=== PATIENT | male | born 1960 | race Caucasian/White ===

== ENCOUNTER 2019-11-26 11:00 | Outpatient (RCR) | payer BC, SELFPAY ==
[2019-11-05 09:26] VITALS: BMI 31.0
== END 2020-01-25 09:36 | disposition home or self-care (01) ==
LOC: ANHDMC 11:00
PROVIDERS: PCP Family Medicine; Visit Provider Family Medicine
DX: E11.65 Type 2 diabetes mellitus with hyperglycemia (principal); Z71.3 Dietary counseling and surveillance
CPT/HCPCS: 97802

== ENCOUNTER 2023-10-25 08:04 | Emergency (ER) | payer MEDICARE, SELFPAY ==
--- NOTE | ~2023-10-25 | XR_ITS ---
XR shoulder RT min 2V, XR humerus RT 10/25/2023 08:41 Indication: Right shoulder and arm pain after fall Procedure: 2 views right shoulder and 2 views right humerus Comparison: No prior studies for comparison. 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 Osteopenia. No acute fracture or traumatic malalignment. There are surgical changes in the soft tissues medial to the elbo w. There is enthesopathy of the proximal humerus. No foreign bodies. Impression: 1: No acute fracture. Reviewed, dictated and finalized at location B. Impression: 1: No acute fracture. Impression: 1: No acute fracture.
--- NOTE | 2023-10-25 08:10 | ED.UPPEXIN ---
HPI - Extremity Injury (Upper) General Chief Complaint: Extremity Injury, Upper Stated Complaint: Right Shoulder/Arm Pain Time Seen by Provider: 10/25/23 08:21 Source: patient, RN notes reviewed and old records reviewed Mode of arrival: ambulatory Limitations: no limitations History of Present Illness HPI narrative: 62 yo male presents to the [facility] with C/O right shoulder and arm pain post fall yesterday. Patient also concerned that he has a decreased range of motion of the right shoulder. Can raise to 90?. Patient states that he was walking around outside, 's flower garden when he tripped and fell landing on his right arm. Denies hitting head. Denies loss of consciousness. No back pain. Has a dialysis catheter in place, does not use at this time, states that he has stage 5 kidney disease. Bruit and thrill is noted exam. Related Data Home Medications Medication Instructions Recorded Confirmed albuterol sulfate 90 mcg/actuation See Rx Instructions .Route .COMPLEX 10/25/23 10/25/23 aerosol inhaler (Ventolin HFA) aspirin 81 mg tablet 81 mg PO DAILY 10/25/23 10/25/23 budesonide 160 mcg-glycopyr 9 2 inh inhalation BID 10/25/23 10/25/23 mcg-formot 4.8 mcg/actuation HFA inhaler (Breztri Aerosphere) carvedilol 25 mg tablet 25 mg PO BID 10/25/23 10/25/23 cilostazol 100 mg tablet 100 mg PO BID 10/25/23 10/25/23 flash glucose sensor (FreeStyle 10/25/23 10/25/23 Sylvia 2 Sensor kit) furosemide 80 mg tablet See Rx Instructions .Route .COMPLEX 10/25/23 10/25/23 gabapentin 300 mg capsule 300 mg PO BID 10/25/23 10/25/23 insulin aspart U-100 100 unit/mL See Rx Instructions .Route .COMPLEX 10/25/23 10/25/23 (3 mL) subcutaneous pen (Novolog FlexPen U-100 Insulin aspart) insulin degludec 200 unit/mL (3 80 unit subcut HS 10/25/23 10/25/23 mL) subcutaneous pen (Tresiba FlexTouch U-200 insulin) omeprazole 40 mg capsule,delayed 40 mg PO DAILY 10/25/23 10/25/23 release rosuvastatin 40 mg tablet 40 mg PO HS 10/25/23 10/25/23 semaglutide 1 mg/dose (4 mg/3 mL) 1 mg subcut WEEKLY 10/25/23 10/25/23 subcutaneous pen injector (Ozempic) Allergies Allergy/AdvReac Type Severity Reaction Status Date / Time morphine Allergy Intermediate Palpitation Verified 10/25/23 08:20 s Review of Systems Review of Systems: All systems reviewed & are unremarkable except as noted in HPI and below Constitutional: Constitutional: Reports no additional constitutional complaints Eyes: Eyes: Reports no additional eye complaints ENT: Reports system reviewed and no additional complaints, except as documented Cardiovascular: Cardiovascular: Reports no additional cardiovascular complaints, Denies chest pain and Denies dyspnea Respiratory: Respiratory: Reports no additional respiratory complaints, Denies chest congestion, Denies cough and Denies dyspnea Gastrointestinal: Gastrointestinal: Reports no additional gastrointestinal complaints, Denies abdominal pain, Denies nausea and Denies vomiting Musculoskeletal: Musculoskeletal: Reports as per HPI, Denies deformity, Reports arthralgias, Denies joint swelling and Reports limited range of motion Integumentary/Breasts: Skin/Breast: Reports system reviewed and no additional complaints, except as docu Neurologic: Reports system reviewed and no additional complaints, except as documented Psychiatric: Psychiatric: Reports no additional psychiatric complaints Allergic/Immunologic: Allergic/Immunologic: Reports no additional allergic/immunologic complaints [facility] Past Medical History Medical History (Updated 10/25/23 @ 09:12 by Pao Song APRN) H/O gastroesophageal reflux (GERD) History of diabetes mellitus History of high blood pressure History of high cholesterol Stage 5 chronic kidney disease Vascular dialysis catheter in place Right arm Social History Social History (Updated 10/25/23 @ 08:33 by Pao Song APRN) Gender identity (if verbalized by the patient): Male
[2023-10-25 08:22] VITALS: BP 134/68; PULSE 97; RESP 16; TEMP 36.5; O2SAT 98
== END 2023-10-25 09:12 | disposition home or self-care (01) ==
PROVIDERS: Emergency Provider Nurse Practitioner; PCP Family Medicine
DX: S40.021A Contusion of right upper arm, initial encounter (principal); W01.0XXA Fall on same level from slipping, tripping and stumbling without subsequent striking against object, initial encounter; K21.9 Gastro-esophageal reflux disease without esophagitis; I12.0 Hypertensive chronic kidney disease with stage 5 chronic kidney disease or end stage renal disease; E11.22 Type 2 diabetes mellitus with diabetic chronic kidney disease; N18.5 Chronic kidney disease, stage 5; Z79.4 Long term (current) use of insulin; E78.00 Pure hypercholesterolemia, unspecified
CPT/HCPCS: 73030; 73060; 99203; G0463

== ENCOUNTER 2024-09-30 08:33 | Emergency (ER) | payer MEDICARE, SELFPAY ==
[2024-09-30 08:35] VITALS: BP 166/96; PULSE 93; RESP 20; TEMP 35.8; O2SAT 100
--- NOTE | 2024-09-30 08:40 | ED.FALL ---
HPI - Fall General Stated Complaint: Fall Injury Source: patient Mode of arrival: ambulatory Limitations: no limitations History of Present Illness HPI Narrative: Patient is a 63-year-old male presenting with complaint of fall injury. Patient states he was walking into this building to go to [facility] for lab work, pre kidney transplant. Patient states that he stumbled, subsequently falling onto his R knee and then forward striking the left side of his head on concrete. He denies loss of consciousness. He denies feeling dizzy or lightheaded prior to fall. He denies any vision abnormalities. He denies any nausea, vomiting, headache, CP, SOB. He reports last tetanus vaccination received less than 5 years ago. He does take a daily baby aspirin. No additional complaints. Dexcom glucose reading 139 Related Data Home Medications ?Medication ?Instructions ?Recorded ?Confirmed ?Last Taken ?Type albuterol sulfate 90 mcg/actuation See Rx Instructions .Route .COMPLEX 10/25/23 10/25/23 Unknown History aerosol inhaler (Ventolin HFA) aspirin 81 mg tablet 81 mg PO DAILY 10/25/23 10/25/23 Unknown History budesonide 160 mcg-glycopyr 9 2 inh inhalation BID 10/25/23 10/25/23 Unknown History mcg-formot 4.8 mcg/actuation HFA inhaler (Breztri Aerosphere) carvedilol 25 mg tablet 25 mg PO BID 10/25/23 10/25/23 Unknown History cilostazol 100 mg tablet 100 mg PO BID 10/25/23 10/25/23 Unknown History flash glucose sensor (FreeStyle 10/25/23 10/25/23 Unknown History Sylvia 2 Sensor kit) furosemide 80 mg tablet See Rx Instructions .Route .COMPLEX 10/25/23 10/25/23 Unknown History gabapentin 300 mg capsule 300 mg PO BID 10/25/23 10/25/23 Unknown History insulin aspart U-100 100 unit/mL See Rx Instructions .Route .COMPLEX 10/25/23 10/25/23 Unknown History (3 mL) subcutaneous pen (Novolog FlexPen U-100 Insulin aspart) insulin degludec 200 unit/mL (3 80 unit subcut HS 10/25/23 10/25/23 Unknown History mL) subcutaneous pen (Tresiba FlexTouch U-200 insulin) omeprazole 40 mg capsule,delayed 40 mg PO DAILY 10/25/23 10/25/23 Unknown History release rosuvastatin 40 mg tablet 40 mg PO HS 10/25/23 10/25/23 Unknown History semaglutide 1 mg/dose (4 mg/3 mL) 1 mg subcut WEEKLY 10/25/23 10/25/23 Unknown History subcutaneous pen injector (Ozempic) Allergies Allergy/AdvReac Type Severity Reaction Status Date / Time morphine Allergy Intermediate Palpitation Verified 09/30/24 08:35 s Review of Systems Review of Systems: CONSTITUTIONAL: Denies body aches, fever, chills, or sweats. EYES: Denies visual changes, redness, or discharge. ENT: Denies rhinorrhea, congestion, sore throat, or otalgia. CARDIOVASCULAR: Denies chest pain, palpitations, or edema. RESPIRATORY: Denies cough or dyspnea. GASTROINTESTINAL: Denies abdominal pain, nausea, vomiting, or diarrhea. GENITOURINARY: Denies dysuria or hematuria. SKIN: Denies rash, itching, or wounds. MUSCULOSKELETAL: Denies back pain, Neck pain,joint pain, or myalgia. NEUROLOGIC: Denies headache, numbness, tingling, or weakness. PSYCH: Denies depression or anxiety. All systems reviewed & are unremarkable except as noted in HPI and below PMFSH Past Medical History Medical History Stage 5 chronic kidney disease Vascular dialysis catheter in place Right arm H/O gastroesophageal reflux (GERD) History of high cholesterol History of diabetes mellitus History of high blood pressure Social History Social History Gender identity (if verbalized by the patient): Male Spiritual care concerns: No Exam Narrative: GENERAL: Well-appearing, well-nourished, and in no acute distress. HEAD: contusion, Skin tear with contusion noted to the lateral aspect of the left eyebrow-no active bleeding EYES: EOMI. No redness or drainage. Conjunctivae normal. ENT: Mucous membranes pink and moist. Nares clear. No rhinorrhea. TMs normal bilaterally. Throat normal. Uvula midline. NECK: Normal AROM. Supple. CHEST: No respiratory distress. HEART: normal rate Normal peripheral pulses. ABDOMEN: Soft, nontender, nondistended MUSCULOSKELETAL: No bony tenderness. no C-spine tenderness. EXTREMITIES: Nonbleeding abrasion noted over the R. patella with associated hematoma. Normal range of motion. DNVI to all extremities SKIN: Numerous skin tears to dorsal aspect of bilateral upper extremities (L>R) with largest skin tear measuring [id number] to the dorsal aspect of the L. forearm. Unable to reapproximate skin. Scattered ecchymoses noted to dorsal aspect of jimenez. forearms, hands (L>R). No active bleeding. Warm, dry, no rash. Capillary refill normal. NEURO: No focal deficits. Alert and oriented x3. Gait steady. PSYCH: Normal affect. No signs of depression or anxiety. Eyes: General: appearance normal, both eyes and all related structures Pupils: Equal, round and reactive pupils present Course Course Emergency Course: given the patient's age, use of daily aspirin, head injury, I recommended he be transferred to ER of his choice for further diagnostic workup. Patient agreed and requested we transfer [facility]. He is aware that he should go straight to ER and remain NPO until instructed otherwise. Verbal report called to ANA Camilo Level of Care: Express Care Visit Transfer Transfered to: [facility] Transportation: Other (POV) Transfer rationale: further diagnostic work up Discharge Plan Discharge Clinical Impression: Fall, Laceration of face, Laceration of left forearm, Laceration of forearm, right, Head injury, Current use of aspirin, Traumatic ecchymosis of left forearm, Traumatic ecchymosis of right forearm, Skin tear of left hand without complication, Abrasion of knee, right, Contusion of knee, right Patient Disposition: Acute Care Hospital Condition: Stable Patient Language: Mongolian Prescriptions: No Action cilostazol 100 mg tablet 100 mg PO BID carvedilol 25 mg tablet 25 mg PO BID omeprazole 40 mg capsule,delayed release(DR/EC) 40 mg PO DAILY furosemide 80 mg tablet See Rx Instructions .ROUTE .COMPLEX Rx Instructions: Rx gabapentin 300 mg capsule 300 mg PO BID albuterol sulfate [Ventolin HFA] 90 mcg/actuation HFA aerosol inhaler See Rx Instructions .ROUTE .COMPLEX Rx Instructions: Rx rosuvastatin 40 mg tablet 40 mg PO HS insulin degludec [Tresiba FlexTouch U-200] 200 unit/mL (3 mL) insulin pen 80 unit SUBCUT HS (DME) FreeStyle Sylvia 2 Sensor Kit MISCELLANEOUS Ozempic 1 mg/dose (4 mg/3 mL) pen injector 1 mg SUBCUT WEEKLY aspirin 81 mg Tablet 81 mg PO DAILY insulin aspart U-100 [Novolog FlexPen U-100 Insulin] 100 unit/mL (3 mL) insulin pen See Rx Instructions .ROUTE .COMPLEX Rx Instructions: Rx Breztri Aerosphere 160-9-4.8 mcg/actuation HFA aerosol inhaler 2 inh INHALATION BID Follow-up/Referrals: Carlos,Everett Ang MD [Primary Care Provider] - Time of Disposition: 08:46
== END 2024-09-30 09:18 | disposition short-term general hospital (02) ==
PROVIDERS: Emergency Provider Registered Nurse; PCP Family Medicine
DX: S01.81XA Laceration without foreign body of other part of head, initial encounter (principal); S51.812A Laceration without foreign body of left forearm, initial encounter; S51.811A Laceration without foreign body of right forearm, initial encounter; S61.412A Laceration without foreign body of left hand, initial encounter; W01.0XXA Fall on same level from slipping, tripping and stumbling without subsequent striking against object, initial encounter; S09.90XA Unspecified injury of head, initial encounter; Z79.82 Long term (current) use of aspirin; S50.12XA Contusion of left forearm, initial encounter; S50.11XA Contusion of right forearm, initial encounter; S80.01XA Contusion of right knee, initial encounter; S80.211A Abrasion, right knee, initial encounter; I12.0 Hypertensive chronic kidney disease with stage 5 chronic kidney disease or end stage renal disease; E11.22 Type 2 diabetes mellitus with diabetic chronic kidney disease; N18.5 Chronic kidney disease, stage 5; Z99.2 Dependence on renal dialysis; Z79.4 Long term (current) use of insulin; K21.9 Gastro-esophageal reflux disease without esophagitis; E78.00 Pure hypercholesterolemia, unspecified
CPT/HCPCS: 99212; G0463